=== PATIENT | male | born 1985 | race Caucasian/White ===

== ENCOUNTER 2016-09-13 22:33 | Emergency (ER) | payer OTHER ==
[2016-09-13 22:40] VITALS: BP 130/73; PULSE 74; TEMP 98; BMI 29.7
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
[2016-09-13] MEDS ORDERED: IBUPROFEN 400 MG TABLET (FP) PO ONE (23:30)
== END 2016-09-13 23:48 | disposition home or self-care (01) ==
LOC: JER 22:33
DX: S46.811A Strain of other muscles, fascia and tendons at shoulder and upper arm level, right arm, initial encounter (principal); S66.811A Strain of other specified muscles, fascia and tendons at wrist and hand level, right hand, initial encounter; Y35.811A Legal intervention involving manhandling, law enforcement official injured, initial encounter; Y93.89 Activity, other specified; Y92.89 Other specified places as the place of occurrence of the external cause; Y99.0 Civilian activity done for income or pay
CPT/HCPCS: 99281-25

== ENCOUNTER 2017-11-01 21:06 | Emergency (ER) | payer OTHER ==
[2017-11-01 21:19] VITALS: BP 139/76; PULSE 83; TEMP 97.8; BMI 29.0
--- NOTE | 2017-11-01 21:20 | PDOC ---
Rapid Medical Evaluation Time Seen by Provider: 11/01/17 21:15 Medical Evaluation: Allergies Allergy/AdvReac Type Severity Reaction Status Date / Time No Known Allergies Allergy Verified 06/09/17 04:00 11/01/17 21:15 The patient presents with a chief complaint of: R groin pain. 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 [place] the pain right away. Denies n/v/d. Pain is currently a 5/10. Concerned he may have a hernia I have performed a brief in-person evaluation of this patient; Pertinent physical exam findings: ambulatory, in no respiratory distress. RLQ pain on exam, some discomfort with jumping I have ordered the following: CBC, CMP, PT/INR, lipase, urine. The patient will proceed to the ED for further evaluation. Discharge Disposition - Referrals Referrals: Inocencia Roth MD [Primary Care Provider] - - Patient Instructions - Post Discharge Activity
[2017-11-01 21:43] LABS: BASO % 0.8 % (0-2.0); EOS % 1.9 % (0-4.5); HEMATOCRIT 43.5 % (35.4-49); HEMOGLOBIN 15.3 GM/dL (11.7-16.9); LYMPH % 30.9 % (8-40); MCH 32.6 pg (25.7-33.7); MCHC 35.2 g/dl (32.0-35.9); MEAN CELL VOLUME 92.5 fl (80-96); MEAN PLT VOLUME 8.8 fl (7.5-11.1); NEUT % 58.4 % (42.8-82.8); PLATELET COUNT 235 K/MM3 (134-434); RDW 12.5 % (11.9-15.9); WHITE BLOOD COUNT 6.5 K/mm3 (4.0-10.0)
[2017-11-01 21:58] LABS: INR 1.05 (0.82-1.09); PROTHROMBIN TIME (PATIENT) 11.9 SEC (9.98-11.88)
[2017-11-01 22:05] LABS: URINE APPEARANCE CLEAR; URINE BILIRUBIN NEGATIVE (<2.0 mg/dL); URINE BLOOD 1+ (NEGATIVE); URINE COLOR LTYELLOW; URINE GLUCOSE (UA) NEGATIVE (NEGATIVE); URINE KETONE NEGATIVE (NEGATIVE); URINE LEUK ESTERASE NEGATIVE (NEGATIVE); URINE NITRITE NEGATIVE (NEGATIVE); URINE PROTEIN NEGATIVE (NEGATIVE); URINE UROBILINOGEN NEGATIVE mg/dL (0.2-1.0)
[2017-11-01 22:08] LABS: CALCIUM OXALATE CRYSTALS FEW /hpf (NONE SEEN); URINE MUCUS RARE
[2017-11-01] MEDS ORDERED: IBUPROFEN 600 MG TABLET (FP) PO ONE ×2 (22:11→22:13)
[2017-11-01 22:20] LABS: ALBUMIN 4.5 g/dl (3.4-5.0); ANION GAP 5 (8-16); BLOOD UREA NITROGEN 13 mg/dL (7-18); CALCIUM 8.9 mg/dL (8.5-10.1); CHLORIDE 103 mmol/L (98-107); CO2 32 mmol/L (21-32); GLUCOSE,RANDOM 127 mg/dL (74-106); POTASSIUM 3.8 mmol/L (3.5-5.1); SGOT/AST 18 U/L (15-37); SGPT/ALT 29 U/L (12-78); SODIUM 140 mmol/L (136-145)
[2017-11-01 22:21] LABS: ALK PHOS 90 U/L (45-117); BILIRUBIN,TOTAL 0.5 mg/dL (0.2-1.0); TOT PROT 7.8 g/dl (6.4-8.2)
--- NOTE | 2017-11-01 22:27 | PDOC ---
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 Denies any fever, denies any urinary symptoms, denies any history of hernia. Past Medical History: [Denies]. Allergies: No known allergies Medications: None Family History: Non-contributory Social History: Denies smoking, alcohol use, or IVDU Review of Systems GENERAL/CONSTITUTIONAL: [No fever or chills. No weakness. No weight change.] HEAD, EYES, EARS, NOSE AND THROAT: [No change in vision. No ear pain or discharge. No sore throat. ] CARDIOVASCULAR: [No chest pain or shortness of breath.] RESPIRATORY: [No cough, wheezing, or hemoptysis.] GASTROINTESTINAL: [No nausea, vomiting, diarrhea or constipation. No rectal bleeding.] GENITOURINARY: [No dysuria, frequency, or change in urination.] MUSCULOSKELETAL: [No joint or muscle swelling or pain. No neck or back pain. Right lower quadrant pain, groin pain. ] SKIN [No rash or easy bruising.] NEUROLOGIC: [No headache, vertigo, loss of consciousness, or loss of sensation.] PSYCHIATRIC: [No depression or anxiety.] ENDOCRINE: [No increased thirst. No abnormal weight change.] HEMATOLOGIC/LYMPHATIC: [No anemia, easy bleeding, or history of blood clots.] ALLERGIC/IMMUNOLOGIC: [No hives or skin allergy. No latex allergy.] Physical Exam: GENERAL: [The patient is awake, alert, and fully oriented, in no acute distress. ] HEAD: [Normal with no signs of trauma.] EYES: [Pupils equal, round and reactive to light, extraocular movements intact, sclera anicteric, conjunctiva clear.] ENT: [Ears normal, nares patent, oropharynx clear without exudates. Moist mucous membranes. No uvula deviation] NECK: [Normal range of motion, supple without lymphadenopathy, JVD, or masses.] LUNGS: [Breath sounds equal, clear to auscultation bilaterally. No wheezes, and no crackles.] HEART: [Regular rate and rhythm, normal S1 and S2 without murmur, rub or gallop. ] ABDOMEN: [Soft, nontender, normoactive bowel sounds. No guarding, mild rebound right lower quadrant tenderness No masses. No bruising or abrasions. Scrotum is intact, no evidence of inguinal hernia] MUSCULOSKELETAL: [Normal range of motion, no edema. No clubbing or cyanosis. No cords, erythema, or tenderness.Right lower quadrant pain, groin pain.] NEUROLOGICAL: [Cranial nerves II through XII grossly intact. Normal speech, normal gait.] PSYCH: [Normal mood, normal affect.] SKIN: [Warm, Dry, normal turgor, no rashes or lesions noted.] Past History - Past Medical History Allergies/Adverse Reactions: Allergies Allergy/AdvReac Type Severity Reaction Status Date / Time No Known Allergies Allergy Verified 11/01/17 21:19 Home Medications: Ambulatory Orders NK [No Known Home Medication] 07/28/15 COPD: No - Immunization History Immunization Up to Date: Yes - Suicide/Smoking/Psychosocial Hx Smoking History: Never smoked Have you smoked in the past 12 months: No Number of Cigarettes Smoked Daily: 0 Cigars Per Day: 0 Information on smoking cessation initiated: No Hx Alcohol Use: No Drug/Substance Use Hx: No Substance Use Type: None *Physical Exam - Vital Signs Last Vital Signs Temp Pulse Resp BP Pulse Ox 97.8 F 83 18 139/76 100 11/01/17 21:15 11/01/17 21:15 11/01/17 21:15 11/01/17 21:15 11/01/17 21:15 ED Treatment Course - LABORATORY CBC & Chemistry Diagram: 11/01/17 21:35 11/01/17 21:35 - ADDITIONAL ORDERS Additional order review: Laboratory Results 11/01/17 11/01/17 21:46 21:35 PT with INR 11.90 H INR 1.05 Urine Color Ltyellow Urine Appearance Clear Urine pH 6.0 Ur Specific [place] 1.018 Urine Protein Negative Urine Glucose (UA) Negative Urine Ketones Negative Urine Blood 1+ H Urine Nitrite Negative Urine Bilirubin Negative Urine Urobilinogen Negative Ur Leukocyte Esterase Negative Urine WBC (Auto) None Urine RBC (Auto) 3 Calcium Oxalate Crystal Few Urine Mucus Rare 11/01/17 21:35 RBC 4.70 MCV 92.5 MCHC 35.2 RDW 12.5 MPV 8.8 Neutrophils % 58.4 Lymphocytes % 30.9 Monocytes % 8.0 Eosinophils % 1.9 D Basophils % 0.8 - Medications Given in the ED: ED Medications Discontinued Medications Generic Name Dose Route Start Last Admin Trade Name Renu PRN Reason Stop Dose Admin Ibuprofen 600 mg 11/01/17 22:13 11/01/17 22:17 Motrin - PO 11/01/17 22:14 600 mg ONCE ONE Administration Medical Decision Making - Medical Decision Making 11/01/17 22:25 A/P: Patient with right lower quadrant, groin pain most likely musculoskeletal in nature labs were drawn in triage awaiting results. Motrin given for pain. Laboratory Results - last 24 hr 11/01/17 11/01/17 11/01/17 21:35 21:35 21:46 WBC 6.5 RBC 4.70 Hgb 15.3 Hct 43.5 MCV 92.5 MCH 32.6 MCHC 35.2 RDW 12.5 Plt Count 235 MPV 8.8 Neutrophils % 58.4 Lymphocytes % 30.9 Monocytes % 8.0 Eosinophils % 1.9 D Basophils % 0.8 PT with INR 11.90 H INR 1.05 Urine Color Ltyellow Urine Appearance Clear Urine pH 6.0 Ur Specific [place] 1.018 Urine Protein Negative Urine Glucose (UA) Negative Urine Ketones Negative Urine Blood 1+ H Urine Nitrite Negative Urine Bilirubin Negative Urine Urobilinogen Negative Ur Leukocyte Esterase Negative Urine WBC (Auto) None Urine RBC (Auto) 3 Calcium Oxalate Crystal Few Urine Mucus Rare No evidence of appendicitis or inguinal hernia, Labs unremarkable, will DC patient home with anti-inflammatories if any increased pain, fever, or any other concerns return to ER 11/01/17 22:37 *DC/Admit/Observation/Transfer Diagnosis at time of Disposition: Muscle strain - Discharge Dispostion Disposition: HOME Condition at time of disposition: Stable Admit: No - Referrals Referrals: Inocencia Roth MD [Primary Care Provider] - - Patient Instructions Additional Instructions: Return for pain, for any increased pain, fever, urinary difficulty, or any other concerns return immediately to ER - Post Discharge Activity
== END 2017-11-01 22:34 | disposition home or self-care (01) ==
LOC: JERFT 21:06
DX: S39.011A Strain of muscle, fascia and tendon of abdomen, initial encounter (principal); X50.9XXA Other and unspecified overexertion or strenuous movements or postures, initial encounter; Y93.89 Activity, other specified; Y92.89 Other specified places as the place of occurrence of the external cause; Y99.0 Civilian activity done for income or pay
CPT/HCPCS: 36415; 80053; 81003; 81015; 83690; 85025; 85610; 99281-25

== ENCOUNTER 2018-12-05 21:34 | Emergency (ER) | payer OTHER ==
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
[2018-12-05 21:46] VITALS: BP 114/52; PULSE 64; TEMP 97.9; BMI 29.0
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
== END 2018-12-05 22:55 | disposition home or self-care (01) ==
LOC: JERFT 21:34 → JER 21:34 → JERFT 22:55
DX: M25.562 Pain in left knee (principal); Y93.89 Activity, other specified; Y35.891A Legal intervention involving other specified means, law enforcement official injured, initial encounter; Y92.89 Other specified places as the place of occurrence of the external cause; Y99.0 Civilian activity done for income or pay
CPT/HCPCS: 99281-25

== ENCOUNTER 2019-08-21 20:19 | Emergency (ER) | payer OTHER ==
[2019-08-21 20:36] VITALS: BP 135/70; PULSE 78; TEMP 97.6; BMI 29.0
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
== END 2019-08-21 22:01 | disposition home or self-care (01) ==
LOC: JER 20:19 → JERFT 20:19
DX: S60.041A Contusion of right ring finger without damage to nail, initial encounter (principal); Y35.811A Legal intervention involving manhandling, law enforcement official injured, initial encounter; Y93.89 Activity, other specified; Y92.89 Other specified places as the place of occurrence of the external cause; Y99.0 Civilian activity done for income or pay
CPT/HCPCS: 99281-25

== ENCOUNTER 2020-04-29 16:46 | Emergency (ER) | payer OTHER ==
[2020-04-29 17:01] VITALS: BP 126/71; PULSE 84; TEMP 99.3; BMI 29.7
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
--- OUTSIDE RECORDS SUMMARY | 2020-04-29 17:13 | XMS ---
:1985 Author Organization [facility] Support Name Relationship Address Phone [employer] Unavailable [address] [place] [address] Re-disclosure Warning The records that you are about to access may contain information from federally- assisted alcohol or drug abuse programs. If such information is present, then the following federally mandated warning applies: This information has been disclosed to you from records protected by federal confidentiality rules (42 CFR part 2). The federal rules prohibit you from making any further disclosure of this information unless further disclosure is expressly permitted by the written consent of the person to whom it pertains or as otherwise permitted by 42 CFR part 2. A general authorization for the release of medical or other information is NOT sufficient for this purpose. The Federal rules restrict any use of the information to criminally investigate or prosecute any alcohol or drug abuse patient.The records that you are about to access may contain highly sensitive health information, the redisclosure of which is protected by Article 27-F of the [facility] Public Health law. If you continue you may haveaccess to information: Regarding HIV / AIDS; Provided by facilities licensed or operated by the [facility] Office of Mental Health; or Provided by the [facility] Office for People With Developmental Disabilities. If such information is present, then the following [facility] mandated warning applies: This information has been disclosed to you from confidential records which are protected by state law. State law prohibits you from making any further disclosure of this information without the specific written consent of the person to whom it pertains, or as otherwise permitted by law. Any unauthorized further disclosure in violation of state law may result in a fine or senior living sentence or both. A general authorization for the release of medical or other information is NOT sufficient authorization for further disclosure. Insurance Providers Payer name Policy type Policy ID Covered Covered libertarian's Policy P tom / Coverage libertarian ID relationship to [facility] ormation type lopez SELF PAY INSURANCE [employer] R[employer]K [id number] SP [id number] MANAGEMENT [employer] R[employer]K [id number] SP [id number] MANAGEMENT
== END 2020-04-29 17:25 | disposition home or self-care (01) ==
LOC: FER 16:46
DX: H91.11 Presbycusis, right ear (principal)
CPT/HCPCS: 99283-25

== ENCOUNTER 2020-11-29 21:54 | Emergency (ER) | payer OTHER ==
[2020-11-29 22:01] VITALS: BP 119/63; PULSE 67; TEMP 98.1; BMI 29.7
[2020-11-29] MEDS ORDERED: IBUPROFEN 600 MG TABLET (FP) PO ONE ×2 (23:36→23:40)
== END 2020-11-29 23:43 | disposition home or self-care (01) ==
LOC: FER 21:54
DX: S63.501A Unspecified sprain of right wrist, initial encounter (principal)
CPT/HCPCS: 73110-TC-RT-FY; 99283-25

== ENCOUNTER 2020-12-09 23:47 | Emergency (ER) | payer OTHER ==
[2020-12-09 23:51] VITALS: BP 138/81; PULSE 79; TEMP 98; BMI 29.0
== END 2020-12-10 00:24 | disposition home or self-care (01) ==
LOC: JER 23:47
DX: Z77.29 Contact with and (suspected) exposure to other hazardous substances (principal)
CPT/HCPCS: 99282-25

== ENCOUNTER 2021-01-13 20:25 | Emergency (ER) | payer OTHER ==
[2021-01-13 21:06] VITALS: BP 122/70; PULSE 65; TEMP 98.5; BMI 29.0
== END 2021-01-13 22:39 | disposition home or self-care (01) ==
LOC: FER 20:25
DX: S80.01XA Contusion of right knee, initial encounter (principal)
CPT/HCPCS: 99283-25

== ENCOUNTER 2021-04-28 23:52 | Emergency (ER) | payer OTHER ==
[2021-04-29 00:06] VITALS: BMI 29.0
[2021-04-29 00:12] VITALS: BP 107/51; PULSE 57; TEMP 98.4
== END 2021-04-29 00:13 | disposition home or self-care (01) ==
LOC: FER 23:52
DX: Z77.21 Contact with and (suspected) exposure to potentially hazardous body fluids (principal); Y08.89XA Assault by other specified means, initial encounter
CPT/HCPCS: 99281-25

== ENCOUNTER 2021-12-14 19:35 | Emergency (ER) | payer OTHER ==
[2021-12-14 20:11] VITALS: BP 95/60; PULSE 73; TEMP 97.8; BMI 30.5
[2021-12-14] MEDS ORDERED: IBUPROFEN 600 MG TABLET (FP) PO ONE ×2 (20:14→20:20)
== END 2021-12-14 21:04 | disposition home or self-care (01) ==
LOC: FER 19:35
DX: S93.401A Sprain of unspecified ligament of right ankle, initial encounter (principal); X50.0XXA Overexertion from strenuous movement or load, initial encounter; Y93.02 Activity, running
CPT/HCPCS: 73610-TC-RT-FY; 99283-25